=== PATIENT | male | born 1940 | race Native Hawaiian/Other Pacific Islander ===

== ENCOUNTER 2017-01-06 08:45 | Outpatient (CLI) | payer OTHER ==
[2017-01-06 09:00] LABS: PLATELET COUNT 153 K/uL (142-355)
[2017-01-06 09:47] LABS: POTASSIUM 4.3 mmol/L (3.6-5.2); SODIUM 138 mmol/L (136-145)
== END 2017-01-06 19:04 | disposition home or self-care (01) ==
LOC: LABW 08:45
PROVIDERS: Internal Medicine
DX: I10 Essential (primary) hypertension (principal); N40.0 Benign prostatic hyperplasia without lower urinary tract symptoms
CPT/HCPCS: 36415; 80053; 80061; 84153; 84443; 85027